=== PATIENT | female | born 1930 | race Asian ===

== ENCOUNTER 2018-09-12 06:08 | Day surgery (SDC) | payer MEDICARE, OTHER ==
[2018-09-12] MEDS ORDERED: PROPOFOL 20 ML (11:54)
== END 2018-09-12 14:50 | disposition home or self-care (01) ==
LOC: GIL 06:08
DX: K29.50 Unspecified chronic gastritis without bleeding (principal); Z86.73 Personal history of transient ischemic attack (TIA), and cerebral infarction without residual deficits; I10 Essential (primary) hypertension
CPT/HCPCS: 43239; 88305; 88312